=== PATIENT | male | born 2000 | race Caucasian/White ===

== ENCOUNTER 2022-04-25 19:26 | Emergency (ER) | payer MEDICAID, SELFPAY ==
[2022-04-25 19:26] VITALS: BP 138/41; PULSE 74; RESP 20; TEMP 36.9; O2SAT 100
--- NOTE | 2022-04-25 21:13 | ED.WOUNDLAC ---
HPI - Wound/Laceration General Chief Complaint: Wound/Laceration Stated Complaint: Left hand laceration Time Seen by Provider: 04/25/22 21:13 Source: patient and family Mode of arrival: ambulatory Limitations: no limitations History of Present Illness HPI narrative: Patient is a 21-year-old male presenting to the emergency department for evaluation of laceration to third and fourth left digits. Patient states that a vase that he was washing broke in the sink and caused 2 cuts to the end of his fingers. Patient reports bleeding has mostly resolved. He did wash it with soap and water at home. Patient is right-hand dominant. He denies any difficulty with bending or extending the fingers. He denies numbness. No wrist pain. Patient is up-to-date on his tetanus per mom who is at bedside and also helps to provide some of the history. Related Data Allergies Allergy/AdvReac Type Severity Reaction Status Date / Time No Known Allergies Allergy Verified 04/25/22 20:40 Review of Systems Review of Systems: CONSTITUTIONAL: Denies fever CARDIOVASCULAR: Denies chest pain RESPIRATORY: Denies cough or dyspnea. GASTROINTESTINAL: Denies abdominal pain SKIN: Denies rash MUSCULOSKELETAL: Denies back pain NEUROLOGIC: Denies headache [facility] Social History Social History (Updated 04/25/22 @ 21:51 by Sara Jaramillo MD) Smoking status: Never smoker Living arrangements: with family Occupation/Education: unemployed Gender identity (if verbalized by the patient): Male Exam Narrative: GENERAL: Awake, alert, conversant HEAD: Normocephalic, atraumatic. EYES: PERRLA and EOMI. ENT: Nares clear, no rhinorrhea or epistaxis. Mucous membranes moist. NECK: Supple. CHEST: No respiratory distress, breathing even and non labored HEART: Regular rate, sinus rhythm ABDOMEN:Non distended, non tender EXTREMITIES: Normal range of motion. No edema. SKIN: Warm, dry, no rash. Patient with 1 cm laceration to volar aspect of left third distal phalanx, no deep tissue involvement. Patient with 1 cm laceration to volar aspect of the left fourth distal phalanx, no deep tissue involvement. Radial pulse of the left upper extremity is 2+. Intact sensation median, ulnar, radial nerve distribution. Intact flexion and extension at the PIP and DIP without limitation. NEURO:No focal deficits. Alert and oriented x3 Course Vital Signs Vital signs: Vital Signs Temperature 36.9 C 04/25/22 19:26 Pulse Rate 74 04/25/22 19:26 Respiratory Rate 20 04/25/22 19:26 Blood Pressure 138/41 L 04/25/22 19:26 Pulse Oximetry 100 04/25/22 19:26 Oxygen Delivery Room Air 04/25/22 19:26 Temperature 36.9 C 04/25/22 19:26 Pulse Rate 74 04/25/22 19:26 Respiratory Rate 20 04/25/22 19:26 Blood Pressure 138/41 L 04/25/22 19:26 Pulse Oximetry 100 04/25/22 19:26 Oxygen Delivery Room Air 04/25/22 19:26 Procedures Laceration Laceration 1: Date: 04/25/22 Time: 21:53 Site: hand Side (If applicable): left Size (cm): 1 Description: linear Depth: simple, single layer Local Anesthetic: lidocaine 1% Pre-repair: wound explored and irrigated ====== Skin Level ====== Skin layer closed with: prolene (5.0) Number of sutures: 3 ====== Subcutaneous Layer ====== ====== Muscle Layer ====== ====== Tendon Layer ====== Dressing: Left fourth digit Laceration 2: Date: 04/25/22 Time: 21:54 Site: hand Side (If applicable): left Size (cm): 1 Description: linear Depth: simple, single layer Local Anesthetic: lidocaine 1% Amount of anesthesia used (mL): 3 Pre-repair: wound explored, irrigated and irrigated extensively ====== Skin Level ====== Skin layer closed with: prolene (5.0) Size (cm): 5-0 Number of sutures: 2 Technique: simple, interrupted ====== Hopper
== END 2022-04-25 22:03 | disposition home or self-care (01) ==
PROVIDERS: Emergency Provider Emergency Medicine; PCP Pediatrics Adolescent Medicine
DX: S61.213A Laceration without foreign body of left middle finger without damage to nail, initial encounter (principal); S61.215A Laceration without foreign body of left ring finger without damage to nail, initial encounter; W25.XXXA Contact with sharp glass, initial encounter
CPT/HCPCS: 12001; 99282

== ENCOUNTER 2022-10-22 09:05 | Emergency (ER) | payer OTHER, SELFPAY ==
[2022-10-22 09:15] VITALS: BP 123/67; PULSE 61; RESP 20; TEMP 36.6; O2SAT 100
--- NOTE | 2022-10-22 09:23 | ED.HA ---
HPI - Headache General Chief Complaint: Headache Stated Complaint: Migraines;Nausea Time Seen by Provider: 10/22/22 09:23 Source: patient Mode of arrival: ambulatory Limitations: no limitations History of Present Illness HPI Narrative: Patient is a 22-year-old male that presents with headache since Friday. Patient states this morning he vomited once and has been nauseous since. Patient also having congestion and subjective fever. Patient has not taken anything for symptoms. Patient did have a negative at home test for COVID this morning. Denies any ear pain, sore throat, cough, shortness breath, diarrhea. Does state he normally has abdominal pain with headaches with the resolve spontaneously after a few hours. Related Data Allergies Allergy/AdvReac Type Severity Reaction Status Date / Time No Known Allergies Allergy Verified 10/22/22 09:16 Review of Systems Review of Systems: All systems reviewed & are unremarkable except as noted in HPI and below Constitutional: Constitutional: Denies body ache(s), Denies chills, Denies fatigue, Reports fever(s), Denies headache(s), Denies malaise and Denies weakness Eyes: Eyes: Denies blurry vision, Denies irritation and Denies loss of vision ENT: Denies otalgia, Reports headache(s), Reports nasal congestion, Reports nasal discharge, Denies sinus pain and Denies sore throat Cardiovascular: Cardiovascular: Denies chest pain, Denies irregular heart rhythm and Denies dyspnea Respiratory: Respiratory: Denies dyspnea Gastrointestinal: Gastrointestinal: Denies abdominal pain, Denies melena, Denies hematochezia, Denies diarrhea, Reports nausea and Reports vomiting Musculoskeletal: Musculoskeletal: Denies back pain, Denies myalgias and Denies arthralgias Integumentary/Breasts: Skin/Breast: Denies pruritus and Denies rash Neurologic: Reports headache(s), Denies loss of vision and Denies weakness Psychiatric: Psychiatric: Reports no additional psychiatric complaints Endocrine: Endocrine: Denies fatigue PMFSH Social History Social History (Updated 04/25/22 @ 21:51 by Sara Jaramillo MD) Smoking status: Never smoker Living arrangements: with family Occupation/Education: unemployed Gender identity (if verbalized by the patient): Male Comments At time of signature, agree with nursing past medical, surgical, social and family history. There is no relevant family history pertinent to the presenting complaint. Exam Const: General: cooperative, healthy appearing, comfortable, no acute distress and well nourished Nutritional Appearance: well nourished Orientation/consciousness: patient oriented x3 Limitations: no limitations HENMT: Head: normal to inspection, normocephalic and atraumatic Ears: hearing grossly normal bilaterally, external ears normal, TM's normal bilaterally and EAC's normal Face/Nose/Sinus: Normal external nose present, Abnormal mucous membranes and turbinates present erythematous bilateral, Nasal discharge present mucoid, normal facial exam, sinuses nontender and face symmetric Face and sinus: normal facial exam and face symmetric Mouth: Yes Normal oral and palatal mucosa present, Yes lip normal, Yes tongue normal, Yes Normal salivary glands and ducts present, Yes oropharynx normal and Yes moist mucous membranes Teeth and gingiva: dentition normal Throat: posterior oropharynx normal, tonsils normal and uvula midline Eyes: General: appearance normal, both eyes and all related structures Alignment and Position: alignment normal and position normal Periorbital: periorbital findings normal Eyelids: eyelids normal Pupils: Equal, round and reactive pupils present EOM: EOMs intact bilaterally Neck: Neck: normal visual inspection, full ROM and supple Chest: Chest palpation & inspection: normal inspection of the chest Resp: Effort & Inspection: normal respiratory effort and able to speak in complete sentences Auscultation: clear to auscultation bilaterally, no crack
[2022-10-22] MEDS: ONDANSETRON HCL ODT 4 MG TABLET PO (09:41)
[2022-10-22] MEDS: ACETAMINOPHEN 500 MG TABLET 1000 MG PO (09:41)
== END 2022-10-22 09:58 | disposition home or self-care (01) ==
PROVIDERS: Emergency Provider Nurse Practitioner Family
DX: J06.9 Acute upper respiratory infection, unspecified (principal)
CPT/HCPCS: 87426; 99213; A9270; C9803; G0463